=== PATIENT | female | born 1975 | race Hispanic/Latino ===

== ENCOUNTER 2023-11-28 06:04 | Day surgery (SDC) | payer BC ==
[2023-11-27 09:29] LABS: BASOPHILS # (AUTO) 0.08 K/uL (0.00-0.20); EOSINOPHILS # (AUTO) 0.22 K/uL (0.00-0.70); EOSINOPHILS % (AUTO) 2.7 % (0.0-8.0); IMMATURE GRANULOCYTE ABSOLUTE 0.04 K/uL (0-1); LYMPHOCYTES # (AUTO) 2.6 K/uL (1.0-4.8); LYMPHOCYTES % (AUTO) 32.7 % (21.0-51.0); MEAN CORPUSCULAR HEMOGLOBIN 26.8 pg (27.0-33.0); MEAN CORPUSCULAR VOLUME 86.6 fL (79-99); MONOCYTES # (AUTO) 0.4 K/uL (0.1-1.0); MONOCYTES % (AUTO) 4.9 % (3.0-13.0); NEUTROPHILS # (AUTO) 4.7 K/uL (1.8-7.7); NEUTROPHILS % (AUTO) 58.2 % (40.0-77.0); PLATELET COUNT (AUTO) 287 K/uL (130-400); RED BLOOD CELL COUNT(AUTO) 4.85 MIL/uL (4.00-5.50); RED CELL DISTRIBUTION WIDTH 14.2 % (11.0-15.5)
[2023-11-27 09:35] LABS: HEMOGLOBIN A1C 5.9 % (4.0-6.0)
[2023-11-27 09:53] LABS: % IRON SATURATION 28.8 % (22-44)
[2023-11-27 10:16] LABS: ALBUMIN 3.5 g/dL (3.5-5.0); BILIRUBIN,TOTAL 0.4 mg/dL (0.2-1.0); CREATININE 0.7 mg/dL (0.5-1.0); POTASSIUM 4.3 mmol/L (3.5-5.1); THYROID STIMULATING HORMONE 1.62 uIU/mL (0.36-3.74); TOTAL PROTEIN, SERUM 7.5 g/dL (6.0-8.3)
[2023-11-28] VITALS (11 sets, daily range): BP systolic 99–146; BP diastolic 46–85; PULSE 58–75; RESP 16–18; TEMP 97.1–97.9
[~2023-11-28] VITALS: Ht 160 cm; Wt 158.8 kg
[~2023-11-28 06:04] MED LIST: TRAM50TA4 PO
[2023-11-28] MEDS: 0.9%NACL 1000ML 1,000 ML IV ONE (07:04)
[2023-11-28] MEDS ORDERED: ketaMINE 50MG/ML SYRINGE 50 MG/ML DISP.SYRIN ONE (08:01)
[2023-11-28] MEDS ORDERED: proPOFol 10 MG/ML 20ML VIAL IV ONE (08:03)
== END 2023-11-28 09:25 | disposition home or self-care (01) ==
LOC: ENDO 06:04 → DAH 06:04 → ENDO 09:25
PROVIDERS: ATTEND Surgery
DX: K30 Functional dyspepsia (principal); K29.50 Unspecified chronic gastritis without bleeding; K22.89 Other specified disease of esophagus; K91.1 Postgastric surgery syndromes; J45.909 Unspecified asthma, uncomplicated; F41.9 Anxiety disorder, unspecified; D64.9 Anemia, unspecified; F34.1 Dysthymic disorder; F32.A Depression, unspecified; Z88.1 Allergy status to other antibiotic agents; Z88.8 Allergy status to other drugs, medicaments and biological substances; E66.01 Morbid (severe) obesity due to excess calories; Z68.44 Body mass index [BMI] 60.0-69.9, adult; Z98.84 Bariatric surgery status; Z79.899 Other long term (current) drug therapy
CPT/HCPCS: 80061; 83036; 84443; 83540; 83550; 80053; 84703; 82728; 85025; 84439; 82306; 82607; 84590; 36415; 43239; J7030 ×2; J2704; J3490; A4620; A4215 ×2; A4223; A4657; A4222; A4221; A4663; A4606